=== PATIENT | female | born 1990 | race Caucasian/White ===

== ENCOUNTER 2017-04-24 07:54 | Emergency (ER) | END 2017-04-24 08:35 | disposition home or self-care (01) ==

== ENCOUNTER 2018-11-09 17:15 | Emergency (ER) | payer BC, OTHER ==
[~2018-11-09] VITALS: Ht 170.2 cm; Wt 64.2 kg
[~2018-11-09 17:15] MED LIST: BISM-34 PO; CEPH-443 PO; ONDA4TAB14 PO
[2018-11-09 17:27] VITALS: BP 140/85; PULSE 118; RESP 18; Ht 170.2 cm; Wt 64.2 kg
--- NOTE | 2018-11-09 17:28 | EN ---
Date/Time of Note Date/Time of Note DATE: 11/09/18 TIME: 17:27 ER Progress Note XYA-62-m[age]-old female with vomiting diarrhea since yesterday. No distress. ED 2 appropriate. XOCHILT CASON MD Nov 09, 2018 17:28
[2018-11-09] MEDS ORDERED: KETOROLAC 15 MG INJ IV STA (18:03)
[2018-11-09] MEDS ORDERED: ONDANSETRON 4 MG INJ IV STA (18:03)
[2018-11-09] MEDS ORDERED: SOD CHLORIDE 0.9% 1,000 ML IV STA (18:03)
[2018-11-09] MEDS ORDERED: ACETAMINOPHEN 325 MG TAB PO ONE (18:30)
--- NOTE | 2018-11-09 21:22 | ERD ---
ER Documentation Chief Complaint Chief Complaint diarrhea and vomiting since yesterday HPI This is a previously healthy 28-year-old female presenting to the emergency department complaining of intermittent nausea, vomiting, and diarrhea for 1 day. She reports she has had close contact with her mother who is had the same symptoms. She denies eating any spoiled foods. She is also had some diffuse abdominal cramping which she rates 2/10 in severity. She took no medication for relief of symptoms. She denies any other symptoms at this time. ROS All systems reviewed and are negative except as per history of present illness. Medications Home Meds Active Scripts Bismuth Subsalicylate* (Bismuth Subsalicylate*) 262 Mg/15 Ml Oral.susp, 15 ML PO Q6 PRN for DIARRHEA, #1 BOTTLE Prov:KONRAD FAITH PA-C 11/09/18 Ondansetron (Ondansetron Odt) 4 Mg Tab.rapdis, 4 MG PO Q6H PRN for NAUSEA AND/OR VOMITING, #10 TAB Prov:KONRAD FAITH PA-C 11/09/18 Cephalexin* (Keflex*) 500 Mg Capsule, 500 MG PO QID for 7 Days, CAP Prov:SHALINI COMBS PA-C 04/24/17 Allergies Allergies: Coded Allergies: No Known Allergy (Unverified , 11/09/18) PMhx/Soc History of Surgery: Yes (nose) Hx Alcohol Use: No Hx Substance Use: No Hx Tobacco Use: No Smoking Status: Never smoker FmHx Family History: No diabetes Physical Exam Vitals Vital Signs Date Temp Pulse Resp B/P (MAP) Pulse Ox O2 O2 Flow FiO2 Time Delivery Rate 11/09/18 99.8 118 18 140/85 100 17:27 (103) Physical Exam Const: No acute distress Head: Atraumatic Eyes: Normal Conjunctiva ENT: Normal External Ears, Nose and Mouth. Neck: Full range of motion. No meningismus. Resp: Clear to auscultation bilaterally Cardio: Regular rate and rhythm, no murmurs Abd: Soft, non tender, non distended. Normal bowel sounds. No rebound tenderness or guarding. No McBurney's point tenderness. Skin: No petechiae or rashes Back: No midline or flank tenderness Ext: No cyanosis, or edema Neur: Awake and alert Psych: Normal Mood and Affect Result Diagram: 11/09/18181711/09/181817 Results 24 hrs Laboratory Tests Test 11/09/18 18:18 11/09/18 18:23 White Blood Count 7.3 10^3/ul Red Blood Count 4.92 10^6/ul Hemoglobin 14.2 g/dl Hematocrit 42.7 % Mean Corpuscular Volume 86.8 fl Mean Corpuscular Hemoglobin 28.9 pg Mean Corpuscular Hemoglobin Concent 33.3 g/dl Red Cell Distribution Width 12.5 % Platelet Count 237 10^3/UL Mean Platelet Volume 10.7 fl Immature Granulocytes % 0.400 % Neutrophils % 82.1 % Lymphocytes % 11.2 % Monocytes % 5.1 % Eosinophils % 0.6 % Basophils % 0.6 % Nucleated Red Blood Cells % 0.0 /100WBC Immature Granulocytes # 0.030 10^3/ul Neutrophils # 6.0 10^3/ul Lymphocytes # 0.8 10^3/ul Monocytes # 0.4 10^3/ul Eosinophils # 0.0 10^3/ul Basophils # 0.0 10^3/ul Nucleated Red Blood Cells # 0.0 10^3/ul Urine Color YELLOW Urine Clarity CLEAR Urine pH 7.0 Urine Specific [place] 1.005 Urine Ketones TRACE mg/dL Urine Nitrite NEGATIVE mg/dL Urine Bilirubin NEGATIVE mg/dL Urine Urobilinogen NEGATIVE mg/dL Urine Leukocyte Esterase NEGATIVE Armani/ul Urine Hemoglobin NEGATIVE mg/dL Urine Glucose NEGATIVE mg/dL Urine Total Protein NEGATIVE mg/dl Sodium Level 140 mmol/L Potassium Level 3.8 mmol/L Chloride Level 104 mmol/L Carbon Dioxide Level 23 mmol/L Anion Gap 13 Blood Urea Nitrogen 9 mg/dl Creatinine 0.58 mg/dl Est Glomerular Filtrat Rate mL/min > 60 mL/min Glucose Level 94 mg/dl Calcium Level 9.7 mg/dl Total Bilirubin 2.4 mg/dl Direct Bilirubin 0.00 mg/dl Indirect Bilirubin 2.4 mg/dl Aspartate Amino Transf (AST/SGOT) 25 IU/L Alanine Aminotransferase (ALT/SGPT) 21 IU/L Alkaline Phosphatase 79 IU/L Total Protein 8.4 g/dl Albumin 5.0 g/dl Globulin 3.40 g/dl Albumin/Globulin Ratio 1.47 Lipase 32 U/L POC Beta HCG, Qualitative NEGATIVE Current Medications Medications Dose Sig/Graham Start Time Status Last (Trade) Ordered Route PRN Stop Time Admin Dose Reason Admin Sodium 1,000 ml @ Q1H STAT 11/09/18 DC 11/09/18 Chloride 1,000 mls/hr IV 18:03 11/09/18 18:21 19:02 Ondansetron 4 mg ONCE STAT 11/09/18 DC 11/09/18 HCl (Zofran IV 18:03 11/09/18 18:23 Inj) 18:07 Ketorolac 15 mg ONCE STAT 11/09/18 DC 11/09/18 Tromethamine IV 18:03 11/09/18 18:23 (Toradol) 18:07 650 mg ONCE ONCE 11/09/18 DC 11/09/18 Acetaminophen PO 18:30 11/09/18 18:23 (Tylenol 18:31 Tab) Procedures/MDM 28-year-old female presenting to the emergency department with signs and symptoms most consistent with gastroenteritis, likely viral etiology. Much lower suspicion for acute surgical abdomen including but not limited to acute diverticulitis, acute cholecystitis, bowel obstruction, acute appendicitis, toxic megacolon, ischemic bowel, and others. CBC: no e/o of systemic infection or severe anemia CMP: no e/o severe acidosis, alkalosis, renal failure, diabetic ketoacidosis, liver disease Lipase: no e/o pancreatitis PT/INR: normal coagulation Urine: no e/o acute infection or hematuria Abdominal Ct Risks and Benefits: CT Scan of the abdomen was discussed with all present and we agree at this time that a trial of watchful waiting is most appropriate. As the patient shows no evidence at this time of acute abdomen. Medical decision making: Patient was administered IV fluids, IV Zofran, IV Toradol and was significantly improved on reevaluation. She was nontoxic and well-appearing. She was hemodynamically stable. She was otherwise appropriate for discharge and further outpatient management with prescriptions. Patient was advised to return here immediately for any new or worsening or concerning symptoms. She understood and agreed with the diagnosis, plan, need for follow- up, return precautions. Patient's blood pressure was elevated (>120/80) but appears stable without evidence of hypertension emergency or urgency. The patient is to follow-up and pursue outpatient monitoring and therapy with their primary care physician within 1 week and return immediately if they have any new, worsening, or concerning symptoms. Disclaimer: Inadvertent spelling and grammatical errors are likely due to EHR/dictation software use and do not reflect on the overall quality of patient care. Also, please note that the electronic time recorded on this note does not necessarily reflect the actual time of the patient encounter. Departure Diagnosis: Primary Impression: Nausea vomiting and diarrhea Condition: Fair Patient Instructions: Food Poisoning Or Gastroenteritis (6Y-Adult) Referrals: [facility] YOU HAVE RECEIVED A MEDICAL SCREENING EXAM AND THE RESULTS INDICATE THAT YOU DO NOT HAVE A CONDITION THAT REQUIRES URGENT TREATMENT IN THE EMERGENCY DEPARTMENT. FURTHER EVALUATION AND TREATMENT OF YOUR CONDITION CAN WAIT UNTIL YOU ARE SEEN IN YOUR DOCTORS OFFICE WITHIN THE NEXT 1-2 DAYS. IT IS YOUR RESPONSIBILITY TO MAKE AN APPOINTMENT FOR FOLOW-UP CARE. IF YOU HAVE A PRIMARY DOCTOR --you should call your primary doctor and schedule an appointment IF YOU DO NOT HAVE A PRIMARY DOCTOR YOU CAN CALL OUR PHYSICIAN REFERRAL HOTLINE AT IF YOU CAN NOT AFFORD TO SEE A PHYSICIAN YOU CAN CHOSE FROM THE FOLLOWING [facility]ICS [facility] [address] [facility]. [facility] [address] [facility] [facility] [address] [facility] [address] [facility] [facility] [address] [facility]. [address] Additional Instructions: Call your primary care doctor TOMORROW for an appointment during the next 1-2 days.See the doctor sooner or return here if your condition worsens before your appointment time. KONRAD FAITH PA-C Nov 09, 2018 21:22
== END 2018-11-09 19:48 | disposition home or self-care (01) ==
LOC: FTE 17:15
DX: R11.2 Nausea with vomiting, unspecified (principal); R19.7 Diarrhea, unspecified
CPT/HCPCS: 36415; 80053; 81003; 81025; 83690; 85025; 96374; 96375; 99284; J1885; J2405; J7030

== ENCOUNTER → 2018-11-24 | Outpatient (CLI) | payer BC | END | disposition home or self-care (01) | LOC: LAB 07:22 | PROVIDERS: ATTEND Internal Medicine | DX: E55.9 Vitamin D deficiency, unspecified (principal); D64.9 Anemia, unspecified; R73.03 Prediabetes; E78.5 Hyperlipidemia, unspecified | CPT/HCPCS: 80053; 80061; 82306; 83036; 84436; 84443; 85025; 85651 ==